=== PATIENT | female | born 1945 | race Two or more races ===

== ENCOUNTER 2020-06-22 13:29 | Outpatient (CLI) | payer OTHER | END 2020-06-22 17:07 | disposition home or self-care (01) | LOC: OFIC 805 13:29 | PROVIDERS: ATTEND Otolaryngology Otology & Neurotology | DX: R09.82 Postnasal drip (principal); J30.89 Other allergic rhinitis; R07.0 Pain in throat; K21.0 Gastro-esophageal reflux disease with esophagitis ==